=== PATIENT | male | born 1995 | race African-American/Black ===

== ENCOUNTER 2017-01-24 20:22 | Emergency (ER) | payer SELFPAY ==
[~2017-01-24] VITALS: Ht 172.7 cm; Wt 63.5 kg
[2017-01-24 20:38] VITALS: BP 113/61
[2017-01-24] MEDS ORDERED: TRAM-48 PO (21:56)
--- NOTE | 2017-01-24 21:56 | PHYS DOC ---
Past Medical History Past Medical History: No Pertinent History Past Surgical History: No Surgical History Alcohol Use: None Drug Use: None Adult General Chief Complaint Chief Complaint: WRIST PAIN HPI HPI Patient is a 21 year old male who presents with mild right scaphoid pain tenderness and pain that began a week ago after he fell down playing basketball. Patient denies any loss of consciousness. Review of Systems Review of Systems Constitutional: Denies fever or chills [] Musculoskeletal: right scaphoid pain tenderness and pain Integument: Denies rash or skin lesions [] Neurologic: Denies headache, focal weakness or sensory changes [] Endocrine: Denies polyuria or polydipsia [] Allergies Allergies Allergies Coded Allergies Type Severity Reaction Last Updated Verified No Known Drug Allergies 01/24/17 No Physical Exam Physical Exam Constitutional: Well developed, well nourished, no acute distress, non-toxic appearance. [] Skin: Warm, dry, no erythema, no rash. [] Back: No tenderness, no CVA tenderness. [] Extremities: Right wrist with no obvious edema and no ecchymosis no obvious deformity. Tenderness on palpation along the scaphoid bone of the right wrist. Full range of motion to the right wrist including flexion and extension. Full range of motion to the right fingers. Adequate radial medial and ulnar sensation to the right hand. +2 right radial pulse. Cap refill less than 2 seconds the right upper extremity. Neurologic: Alert and oriented X 3, normal motor function, normal sensory function, no focal deficits noted. [] Psychologic: Affect normal, judgement normal, mood normal. [] Current Patient Data Vital Signs Vital Signs Date Time Temp Pulse Resp B/P (MAP) Pulse Ox O2 Delivery O2 Flow Rate FiO2 01/24/17 20:38 98.2 61 16 99 Room Air 98.2 EKG EKG [] Radiology/Procedures Radiology/Procedures [] Course & Med Decision Making Course & Med Decision Making Pertinent Labs and Imaging studies reviewed. (See chart for details) Patient has right wrist pain specifically along the scaphoid bone that began after falling a week ago during basketball. Right wrist x-rays interpreted by Dr. Purvis are negative for any acute findings. Patient was placed in a thumb spica by the ED RN. Cap refill less than 2 seconds. Neurovascular exam done by me is normal, ice elevation encouraged. Follow-up with orthopedic doctor provided in one week. Abilio Disclaimer Olgaon Disclaimer This electronic medical record was generated, in whole or in part, using a voice recognition dictation system. Departure Departure Impression: Primary Impression: Right wrist sprain Additional Impression: Fall from standing Disposition: 01 HOME, SELF-CARE Condition: STABLE Referrals: NO PCP (PCP) MICHELLE LAWSON MD Follow-up in one week Patient Instructions: Wrist Splint, [id number] Additional Instructions: You were seen for right wrist sprain after falling. Wear the splint. Follow-up with the provided orthopedic doctor in the course of this week. Ice and elevate the extremity. Take the prescribed pain medicine as needed. Scripts Tramadol Hcl (ULTRAM) 50 Mg Tablet 1 TAB PO Q6HRS, #30 TAB Prov: OLGA FISHER APRN 01/24/17 Problem Qualifiers Primary Impression: Right wrist sprain Encounter type: initial encounter Qualified Codes: S63.501A - Unspecified sprain of right wrist, initial encounter Additional Impression: Fall from standing Encounter type: initial encounter Qualified Codes: W19.XXXA - Unspecified fall, initial encounter OLGA FISHER APRN Jan 24, 2017 21:56
--- NOTE | 2017-01-25 07:58 | RAD ---
Indication persistent pain associated with an injury one week previously. AP oblique and lateral views of the right wrist were obtained. No bony abnormality is seen
== END 2017-01-24 22:00 | disposition home or self-care (01) ==
LOC: ER 20:22
DX: S63.501A Unspecified sprain of right wrist, initial encounter (principal); W18.39XA Other fall on same level, initial encounter; Y93.67 Activity, basketball; Y99.8 Other external cause status; Y92.89 Other specified places as the place of occurrence of the external cause
CPT/HCPCS: 29125; 73110; 99284-25

== ENCOUNTER 2018-12-22 01:41 | Emergency (ER) | payer SELFPAY ==
[~2018-12-22] VITALS: Ht 172.7 cm; Wt 61.2 kg
[~2018-12-22 01:41] MED LIST: TRAM-48 PO
--- NOTE | 2018-12-22 02:12 | PHYS DOC ---
Past Medical History Past Medical History: No Pertinent History Past Surgical History: No Surgical History Alcohol Use: None Drug Use: None Adult General Chief Complaint Chief Complaint: ABDOMINAL PAIN HPI HPI Patient is a 23 year old male who presents with abdominal pain. He states the pain began today around 2-3pm. He states he has had diarrhea and vomiting, along with aches, headaches, and chills. He denies any blood in his stool or vomit. He denies any sick contacts or new foods. He states that he had a previous episode of abdominal pain that was cramping in nature but has since resolved. Review of Systems Review of Systems Constitutional: Reports fever or chills [] Eyes: Denies change in visual acuity, redness, or eye pain [] HENT: Denies nasal congestion or sore throat [] Respiratory: Denies cough or shortness of breath [] Cardiovascular: No additional information not addressed in HPI [] GI: Reports abdominal pain, nausea, vomiting, bloody stools or diarrhea [] : Denies dysuria or hematuria [] Musculoskeletal: Denies back pain or joint pain [] Integument: Denies rash or skin lesions [] Neurologic: Denies headache, focal weakness or sensory changes [] Endocrine: Denies polyuria or polydipsia [] All other systems were reviewed and found to be within normal limits, except as documented in this note. Current Medications Current Medications Current Medications Medications (Trade) Dose Ordered Sig/[facility] Start Time Stop Time Status Last Admin Dose Admin Acetaminophen (Tylenol) 1,000 mg 1X ONCE 12/22/18 02:15 12/22/18 02:16 DC 12/22/18 02:21 1,000 MG Ondansetron HCl (Zofran Odt) 4 mg STK-MED ONCE 12/22/18 02:16 12/22/18 02:17 DC Allergies Allergies Allergies Coded Allergies Type Severity Reaction Last Updated Verified No Known Drug Allergies 01/24/17 No Physical Exam Physical Exam Constitutional: Well developed, well nourished, no acute distress, non-toxic appearance. [] HENT: Normocephalic, atraumatic, bilateral external ears normal, oropharynx moist, no oral exudates, nose normal. [] Eyes: PERRLA, EOMI, conjunctiva normal, no discharge. [] Neck: Normal range of motion, no tenderness, supple, no stridor. [] Pulmonary: Normal respiratory effort no increased work of breathing no obvious chest wall trauma Abdomen: Bowel sounds normal, soft, no tenderness, no masses, no pulsatile masses. [] Skin: Warm, dry, no erythema, no rash. [] Back: No tenderness, no CVA tenderness. [] Extremities: No tenderness, no cyanosis, no clubbing, ROM intact, no edema. [] Neurologic: Alert and oriented X 3, normal motor function, normal sensory function, no focal deficits noted. [] Psychologic: Affect normal, judgement normal, mood normal. [] Current Patient Data Vital Signs Vital Signs Date Time Temp Pulse Resp B/P (MAP) Pulse Ox O2 Delivery O2 Flow Rate FiO2 12/22/18 02:45 78 16 102/62 (75) 98 Room Air 12/22/18 01:50 97.5 97.5 EKG EKG [] Radiology/Procedures Radiology/Procedures [] Course & Med Decision Making Course & Med Decision Making Pertinent Labs and Imaging studies reviewed. (See chart for details) []Vomiting and diarrhea in a patient who was partner also had similar symptoms a few days ago abdomen is benign and nontender talked him about IV fluids and lab work but he really was not that excited about an IV stick. Think it's reasonable to try oral Zofran and a by mouth challenge in the emergency room and if successful likely will be discharged home with prescription for Zofran I did given good return precautions to come back in 1-2 days should he have persistent symptoms spike a fever or have any migrating pain at all Dragon Disclaimer Dragon Disclaimer This electronic medical record was generated, in whole or in part, using a voice recognition dictation system. Departure Departure Impression: Primary Impression: Nausea vomiting and diarrhea Disposition: HOME, SELF-CARE Condition: STABLE Referrals: NO PCP (PCP) Scripts Ondansetron Hcl (ZOFRAN) 4 Mg Tablet 4 MG PO PRN TID PRN for NAUSEA/VOMITING, #15 nausea/vomiting Prov: RITA FLOWERS MD 12/22/18 RITA FLOWERS MD December 22, 2018 02:12
[2018-12-22] MEDS ORDERED: ONDA4TAB7 PO (02:13)
[2018-12-22] MEDS ORDERED: ACETAMINOPHEN 500 MG TABLET PO ONE (02:15)
[2018-12-22] MEDS ORDERED: ONDANSETRON ODT 4 MG TAB.RAPDIS. PO ONE (02:15)
[2018-12-22] MEDS ORDERED: ONDANSETRON ODT 4 MG TAB.RAPDIS. ONE (02:16)
[2018-12-22 02:45] VITALS: BP 102/62
== END 2018-12-22 02:51 | disposition home or self-care (01) ==
LOC: ER 01:41
DX: R11.2 Nausea with vomiting, unspecified (principal); R19.7 Diarrhea, unspecified; R10.9 Unspecified abdominal pain; M79.18 Myalgia, other site; R50.9 Fever, unspecified
CPT/HCPCS: 99283; Q0162